=== PATIENT | female | born 1935 | race Caucasian/White ===

== ENCOUNTER 2017-04-07 21:12 | Observation (INO) | payer MEDICARE ==
[~2017-04-07] VITALS: Ht 157.5 cm; Wt 65.9 kg
[~2017-04-07 21:12] MED LIST: CHOL40003 PO; CIPR-232 PO; CYAN500 PO; LISI2.5T PO; TURM500C7 PO; ZINC50TA4 PO
--- NOTE | 2017-04-07 21:39 | ED.REPORT ---
HPI-Stroke / CVA Apr 07, 2017 ED Provider: Kunal Calles MD Pt is an 81 year old female with a history of meningioma (2004), pituitary tumor , and HTN who presents to the ED via EMS complaining of slurred speech onset 1 hour prior to arrival. Her reports that the pt had difficulty understanding what he was saying. Family denies any other symptoms. EMS reports that the pt was provided Lisinopril, and her symptoms are improved. The pt has had no recent surgeries or injury, and she does not take any blood thinners. The pt had an MRI on 10/14/16. Nursing Notes Stated Complaint: ABNORMAL SPEECH Chief Complaint: Slurred speech Nursing Notes Reviewed: Yes Allergies: Coded Allergies: MUSHROOM (Verified Allergy, Unknown, 04/07/17) Scheduled Cholecalciferol (Vitamin D3) (Vitamin D3) 4,000 Unit Capsule 4,000 UNIT PO DAILY (Reported) Lisinopril (Lisinopril) 2.5 Mg Tablet 2.5 MG PO DAILY (Reported) Turmeric Root Extract (Turmeric) 500 Mg Capsule 500 MG PO DAILY (Reported) Zinc Gluconate (Zinc) 50 Mg Tablet 50 MG PO DAILY (Reported) General Time Seen by Provider: 21:40 Chief Complaint Slurred speech Hx Obtained From: Patient, Spouse, Other family..., EMS Arrived By: Ambulance Time last known well 20:00 on 04/07/17 Sudden in Onset?: Yes Symptom Duration: Since onset Progression Since Onset: Gradually improving Severity: Current: No pain currently Severity: Maximum: No pain Recent Healthcare: No recent doctor visit, No recent hospitalization Similar Sx Previous: No Risk Factors NIH Stroke Scale Level of Consciousness: Alert and responsive (0) Ask Month & Age: Both questions right (0) Open/Close Eyes/Hand Rattle Leak And Squeak Repairer: Performs both tasks (0) Horizontal EO Movements: None (0) Visual Brennan: No visual loss (0) Facial Palsy: Normal symmetry (0) Right Arm Motor Drift (10s): No drift 10 sec (0) Left Arm Motor Drift (10s): No drift 10 sec (0) Right Leg Motor Drift (5s): No drift 5 sec (0) Left Leg Motor Drift (5s): No drift 5 sec (0) Limb Ataxia FNF/Heel-Mathew: No ataxia (0) Sensation (Arms/Legs/Face): No sensory loss (0) Language Aphasia: Loss fluency ID matls (1) (expressive aphasia) Dysarthria: No dysarthria, normal (0) Extinction/Inattention: No exctinct/inattent (0) NIHSS Score: 1 Time NIHSS Performed: 21:51 Date NIHSS Performed: Apr 07, 2017 Past Medical History Past Medical History Dysphagia Cranial tumor, question of Mnire's Disease Chronic back pain Reports: Hypertension Past Surgical History Laser eye Smoking History Never Smoker Social History Alcohol Use: Denies alcohol use Drug Use: Denies drug use Other Social History: Good social support Ambulatory Status Independent Review of Systems Constitutional: Denies: Fever Respiratory: Denies: Non-productive cough, Shortness of breath Neurologic: Reports: Slurred speech Complete sys rev & neg: except as marked. Physical Exam Initial Vital Signs Vital Signs (First) Date Time Temp Pulse Resp B/P Pulse Ox O2 Delivery O2 Flow Rate FiO2 04/07/17 21:56 36.8 80 18 190/79 97 Room Air Initial VS: Reviewed Abdomen / GI: Soft, Non-tender Extremities: Vascular intact, Neuro intact Skin: Warm, Dry, No cyanosis Psychiatric: Mood/affect normal, Behavior normal General/Constitutional: Awake, Alert Head / Eyes: Atraumatic, Normocephalic Neck: Atraumatic, Full range of motion Respiratory / Chest: Atraumatic, Breath sounds NL, Breath sounds = bilat Cardiovascular: Heart rate NL, Regular rhythm, Heart sounds NL Neurologic: CN II - XII intact See NIH stroke scale in risk section. Interpretation & Diagnostics Lab Results Interpretation Result Diagram: 04/07/17214504/07/17 214 Test 04/07/17 21:46 White Blood Count 9.5th/mm3 (3.8-10.1) Red Blood Count 4.44mil/mm3 (3.90-5.20) Hemoglobin 13.7g/dL (12.0-15.6) Hematocrit 41.6% (35.0-46.0) Mean Corpuscular Volume 93.7fL (81-100) Mean Corpuscular Hemoglobin 30.9pg (27.0-35.0) Mean Corpuscular Hemoglobin Concent 32.9% (32.0-37.0) Red Cell Distribution Width 13.3% (12.3-15.4) Platelet Count 278bil/L (150-400) Neutrophils (%) (Auto) 66.0% (40-74) Lymphocytes (%) (Auto) 25.3% (14-46) Monocytes (%) (Auto) 7.2% (4-12) Eosinophils (%) (Auto) 1.0% (0-5) Basophils (%) (Auto) 0.4% (0-3) Prothrombin Time 9.7sec (8.1-12.5) Prothromb Time International Ratio 0.91ratio Activated Partial Thromboplast Time 23.3sec (22.8-33.0) Sodium Level 139mEq/L (134-144) Potassium Level 4.3mEq/L (3.5-5.2) Chloride Level 99mEq/L (97-108) Carbon Dioxide Level 25mmol/L (18-29) Blood Urea Nitrogen 17mg/dL (8-27) Creatinine 0.94mg/dL (0.57-1.00) Estimat Glomerular Filtration Rate 82mL/min (>59) Glucose Level 117mg/dL (60-99) Calcium Level 9.6mg/dL (8.5-10.1) Total Bilirubin 0.2mg/dL (0.0-1.2) Aspartate Amino Transf (AST/SGOT) 27U/L (0-50) Alanine Aminotransferase (ALT/SGPT) 9U/L (0-32) Alkaline Phosphatase 70U/L (25-165) Troponin T 0.010ug/L (0.0-0.011) Total Protein 7.5g/dL (6.4-8.4) Albumin 4.4g/dL (3.4-5.0) ECG Interpretation ECG Interpretation: Sinus rhythm with a rate of [address] changes Time: 22:04 Interpreted by: ED physician CT Head Interpretation IMPRESSION: No acute intracranial abnormality. 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 This study fulfills neurological imaging criteria for inclusion or exclusion of acute stroke therapies based on available published neurological guidelines. Dictated by: Arthur Morales M.D. on 04/07/2017 at 21:59 Study: Head CT no contrast Interpretation / Wet Read by: Interpret - Radiologist Re-Eval/Medical Decision Med Decision/Clinical Course 81-year-old female history of meningioma, pituitary mass, hypertension presenting with dysarthria and expressive aphasia last known normal 8:00 PM. On arrival her symptoms had resolved. CT scan and labs were unremarkable. Her symptoms then returned with expressive aphasia. I consulted the on-call stroke neurologist at [facility] who recommended no TPA given labile blood pressures, age, low NIHSS (2) and fluctuating degree of symptoms. Discussed with family and they agreed with plan. She will be admitted for stroke workup. Given aspirin. Source of Hx: Old records Re-Evaluation/Progress #1: Time of Eval: 21:51 Re-Evaluation/Progress Note: Pt rechecked. NIH stroke scale assessed. Informed family of TPA and plan to discuss candidacy with neurologist. Informed of plan for admission. Pt's family understands and agrees with plan for admission. All questions addressed. Re-Evaluation/Progress #2: Time of Eval: 22:48 Re-Evaluation/Progress Note: Pt rechecked. Assessed pt with additional NIH stroke scale. Informed family of consult with neurologist and advice against treating with TPA. Family understand and agrees with plan to avoid treating with TPA. All questions addressed. Re-Evaluation/Progress #3: Time of Eval: 22:57 Re-Evaluation/Progress Note: Pt rechecked. Updated pt and family. All questions addressed. NIH Stroke Scale : Level of Consciousness: Alert and responsive (0) Ask Month & Age: Both questions right (0) Open/Close Eyes/Hand Rattle Leak And Squeak Repairer: Performs both tasks (0) Horizontal EO Movements: None (0) Visual Brennan: No visual loss (0) Facial Palsy: Normal symmetry (0) Right Arm Motor Drift (10s): No drift 10 sec (0) Left Arm Motor Drift (10s): No drift 10 sec (0) Right Leg Motor Drift (5s): No drift 5 sec (0) Left Leg Motor Drift (5s): No drift 5 sec (0) Limb Ataxia FNF/Heel-Mathew: No ataxia (0) Sensation (Arms/Legs/Face): No sensory loss (0) Language Aphasia: Severe, fragmented (2) (expressive aphasia) Dysarthria: No dysarthria, normal (0) Extinction/Inattention: No exctinct/inattent (0) NIHSS Score: 2 Time NIHSS Performed: 22:48 Date NIHSS Performed: Apr 07, 2017 Consultation #1: Call Returned at: 22:00 Explosives Engineer: Agrees with eval, Agrees with plan Note: Consulted [facility]. Discussed pt's case. Consultation #2: Referral / Consult Name: Andres Dennis MD Consulted With: Hospitalist Call Returned at: 22:49 Explosives Engineer: Will see patient, Agrees with eval, Agrees with plan, Accepts admit Consultation #3: Referral / Consult Name: Darren Grey MD Consulted With: Neurology Call Returned at: 22:35 Explosives Engineer: Agrees with eval, Agrees with plan Note: Discussed pt's case and candidacy for TPA. Recommends not using TPA due to low NIH score and HTN, but to consider TPA if she develops worsening symptoms. Consultation #4: Call Returned at: 23:13 Explosives Engineer: Agrees with eval, Agrees with plan Note: Consulted with Dr. Pollo Green. Discussed pt's case. Counseled Regarding: Diagnosis, Lab results, Need for admission Patient Discharge & Departure Impression: Primary Impression: CVA (cerebral vascular accident) CVA mechanism: unspecified Qualified Code: I63.9 - Cerebral infarction, unspecified Disposition: ADMITTED TO HOSPITAL Discharge Condition All VS Reviewed: Yes Condition: Stable Referrals: Johanna Guardado (PCP) Crit Care Except Billable Proc Time Spent: 30-74 minutes (40) Services Performed: Patient management by me, Time spent at bedside, Reviewing test results, Reviewing imaging, Discussing patient care, Documentation in record, Time with fam/surrogate Scribe Attestation Portions of this note were transcribed by Kimberly Araiza. I, Dr. Calles personally performed the history, physical exam and medical decision-making; I reviewed and confirmed the accuracy of the information in the transcribed note. Signed by: Pillo Salguero, 04/07/17. copies to: Johanna Guardado Ben M MD Apr 07, 2017 21:39 Kimberly Rainey Apr 07, 2017 21:50
[2017-04-07 21:55] LABS: BASOPHILS % (AUTO) 0.4 % (0-3); MONOCYTES % (AUTO) 7.2 % (4-12); Mean Corpuscular Hemoglobin 30.9 pg (27.0-35.0); Mean Corpuscular Volume 93.7 fL (81-100); Platelet Count 278 bil/L (150-400)
[2017-04-07 21:56] VITALS: BP 190/79; PULSE 80; RESP 18; O2SAT 97
[2017-04-07 22:06] LABS: TROPONIN T 0.01 ug/L (0.0-0.011)
--- NOTE | 2017-04-07 22:06 | DRSVH ---
PROCEDURE: CT BRAIN TPA INDICATIONS: speech changes, facial droop TECHNIQUE: Noncontrast 4.5 mm thick angled axial sections acquired from the foramen magnum to the vertex, with c oronal reformats. COMPARISON: [facility], CT, CT BRAIN WO CON, 07/03/2016, 11:49. FINDINGS: Image quality: Good CSF spaces: Basal cisterns are patent. No extra-axial fluid collections. The ventricles are symmet rebecca in size and shape. There is a small frontoparietal left-sided meningioma unchanged as older imag ing measuring approximately 1/2 cm in diameter and 7 mm in thickness. There is also an enlarged pitui tary fossa grossly unchanged compared to previous MRI scans consistent with a small macroadenoma of t he pituitary Brain: No intracranial bleeds or masses. There is cerebral volume loss for age, with resultant vent ricular and sulcal prominence. There are periventricular and deep white matter chronic small vessel ischemic changes. There is intracranial internal carotid artery atherosclerosis. Skull and face: Calvarium and visualized facial bones appear intact, without suspicious lesions. Sinuses: Visualized sinuses and mastoids are clear. IMPRESSION: No acute intracranial abnormality. 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 This study fulfills neurological imaging criteria for inclusion or exclusion of acute stroke therapie s based on available published neurological guidelines. Dictated by: Arthur Morales M.D. on 04/07/2017 at 21:59 Approved by: Arthur Morales M.D. on 04/07/2017 at 22:04 report called to the clinician involved.
[2017-04-07 22:10] LABS: INR 0.91 ratio
[2017-04-07] MEDS ORDERED: Labetalol 5 mg/mL 20 mL Inj IVPUSH ONE (22:30)
[2017-04-07 22:33] VITALS: BP 174/75; PULSE 76; RESP 18; O2SAT 97
[2017-04-07] MEDS ORDERED: Ondansetron 2 mg/mL 2 mL Inj IVPUSH PRN ×2 (22:55→23:10)
[2017-04-07] MEDS ORDERED: Alum-Mag Hydrox-Simeth 30 mL Suspension PO PRN ×2 (22:55→23:10)
[2017-04-07] MEDS ORDERED: Polyethylene Glycol (PEG) 17 Gm Powder PO PRN (23:10)
[2017-04-07 23:30] VITALS: BP 160/80; PULSE 75; RESP 18; O2SAT 99
[2017-04-07 23:46] VITALS: BP 190/90; PULSE 77; RESP 18; O2SAT 97
--- NOTE | 2017-04-07 23:46 | PCM.HPMED ---
Subjective Date of Service Apr 07, 2017 Primary Provider: Admitting Physician: Andres Dennis MD Primary Care Physician: Johanna Guardado Attending Physician: Andres Dennis MD Admit Status: From the Emergency Department Chief Complaint: Slurred speech, aphasia History of Present Illness: Mariam Velarde is a pleasant 81-year-old female with a past medical history of meningioma and pituitary tumor, and hypertension, presents to the ED via EMS one hour slurred speech and trouble speaking. Her noted that he could not understand what she was saying that she was slightly confused, but denies any facial drooping, unilateral motor or muscle weakness. She was able to follow commands and get into the EMS without issue. She is on no blood thinning medications. Her symptoms resolved by the time she got to the ED, where her blood pressures have been quite labile. [place] Neurology was consulted and Dr. Grey recommended no TPA therapy due to the mildness of her symptoms and ongoing BP lability. Her aphasia is present during our exam. Most of the history was obtained and her . Review of Systems: Comprehensive review of systems was conducted with the patient and found to be negative except as noted above in HPI. Allergies Coded Allergies: MUSHROOM (Verified Allergy, Unknown, 04/07/17) Home Medications Scheduled Cholecalciferol (Vitamin D3) (Vitamin D3) 4,000 Unit Capsule 4,000 UNIT PO DAILY (Reported) Cyanocobalamin (Vitamin B12) 500 Mcg Tablet 1,000 MCG PO DAILY (Reported) Lisinopril (Lisinopril) 2.5 Mg Tablet 2.5 MG PO DAILY (Reported) Turmeric Root Extract (Turmeric) 500 Mg Capsule 500 MG PO DAILY (Reported) Zinc Gluconate (Zinc) 50 Mg Tablet 50 MG PO DAILY (Reported) PMH Dysphagia Meningioma/pituitary macroadenoma Chronic back pain Hypertension Surgical History Bilateral laser eye surgery Family History Mother had a stroke. Social History Hx Alcohol Use: No Hx Substance Use: No Hx Tobacco Use: No Smoking Status: Never Smoker Living Arrangement: with Family Exam Vital Signs Vital Sign - Last Date Time Temp Pulse Resp B/P Pulse Ox O2 Delivery O2 Flow Rate FiO2 04/07/17 23:30 75 18 160/80 99 Room Air 04/07/17 21:56 36.8 Exam General: Elderly woman lying comfortably in bed, well-developed, well-nourished HEENT: Normocephalic, atraumatic. External ears without defect. Pupils equal, round, and reactive to light and accommodation. Anicteric sclerae, moist conjunctivae, and no lid lag. Oropharynx free of erythema and cobble stoning with moist mucosa. Neck: Supple with full range of motion. No jugular venous distension. No bruits. No lymphadenopathy or thyromegaly. Cardiovascular: Regular rate and rhythm with no murmurs, rubs, or gallops appreciated Pulmonary: Clear to auscultation bilaterally with no crackles, wheezes, or rhonchi. Normal respiratory effort with no use of accessory muscles. Abdomen: Bowel tones present. Soft, nontender, nondistended. No hepatosplenomegaly or masses appreciated. Extremities: No clubbing, cyanosis, edema, or lymphadenopathy appreciated. Skin: Normal temperature, turgor, and texture; no rash, ulcers, or subcutaneous nodules appreciated. Neurological: Cranial nerves grossly intact. Normal muscle strength, tone, and bulk. Reflexes, coordination, and sensory function within normal limits. She had some difficulty expressing herself during our interview, but follows commands and answers yes and no questions easily. Psychiatric: Slightly anxious when she can't express herself. Lab and Diagnostics Result Diagram: 04/07/17214504/07/172145 X-Rays, CTs and MRIs Brain CT 04/07/2017 IMPRESSION: No acute intracranial abnormality. 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 This study fulfills neurological imaging criteria for inclusion or exclusion of acute stroke therapies based on available published neurological guidelines. Dictated by: Arthur Morales M.D. on 04/07/2017 at 21:59 Approved by: Arthur Morales M.D. on 04/07/2017 at 22:04 report called to the clinician involved. 12-lead ECG ECG Interpretation: Sinus rhythm with a rate of [address] changes Time: 22:04 Interpreted by: ED physician Assessment & Plan Mariam Velarde is a pleasant 81-year-old female with a past medical history of meningioma and pituitary tumor, and hypertension, presents to the ED via EMS one hour slurred speech and trouble speaking which mostly resolved prior to ED arrival. Stroke/TIA, present on admission. Acute. Ongoing. - Slurred speech, aphasia resolved prior to ED; aphasia still somewhat present - [place] neurology consulted from ED; recommend no TPA - CT negative for acute bleed - MRI stroke protocol for tomorrow morning - PT, ST ordered for the morning - Swallow screen pending; NPO until done - Start 81mg aspirin, 300mg plavix and 40 mg of atorvastatin when swallow screen is done - Lipid Panel ordered Hypertension, present on admission. Chronic. - We will allow permissive hypertension for 24 hours - Hold lisinopril 2.5 milligrams daily; restart when appropriate PRN Medications - Acetaminophen as needed for mild pain/fever/headache - Bowel regimen as needed - Antiemetic as needed Patient status: Patient is admitted under observation status with expected length of stay less than 2 midnights due to severity of presenting symptoms, risk of adverse event, and complexity of treatment plan. VTE Prophylaxis: Sub-Q Heparin (Unfractionated) VTE Mechanical Devices: Intermittant Pneumatic CD Resuscitation Status: CPR: Attempt Resuscitation Attending Statement The patient was seen and examined together with Dr. Read on 04/07 and I agree with the history, exam and plan as outlined in the note above. Lenny Read DO Apr 07, 2017 23:46 Andres Dennis MD Apr 08, 2017 06:35
[2017-04-08] MEDS: Heparin 5,000 Unit/mL Inj SUBQ SCH ×3 (00:31→16:30)
[2017-04-08 02:10] LABS: APPEARANCE,URINE CLEAR (CLEAR,HAZY); COLOR,URINE YELLOW (YELLOW); OCCULT BLOOD,URINE NEGATIVE (NEGATIVE); UROBILINOGEN,URINE NORMAL (NORMAL)
--- NOTE | 2017-04-08 02:48 | NUR ---
Admit Pt. arrived on floor at 2345. Pt's peripheral IV intact and patent. Pt. did experience some aphasia during first neuro check on admission with this RN. Pt. had a hard time saying the word "hospital". Pt. has been experiencing aphasia on and off since coming to the ER, per [employer] nurse report. Otherwise, neuro check wnl. and son in room. Oriented to room. Will continue to monitor.
[2017-04-08 04:48] VITALS: BP 172/90; PULSE 68; RESP 18; O2SAT 96
[2017-04-08 06:17] VITALS: PULSE 72
[2017-04-08 08:52] VITALS: BP 156/84; PULSE 76; RESP 18; O2SAT 95
[2017-04-08 09:05] VITALS: PULSE 85
--- NOTE | 2017-04-08 09:23 | NUR ---
Evaluation completed. Please go to "Notes" then click on "Assessments and Notes" (bottom left corner of screen). Then select appropriate discipline tab on top of screen.
--- NOTE | 2017-04-08 10:09 | DRSVH ---
PROCEDURE: MRI STROKE PROTOCOL ([id number]) Pre- and post-contrast brain MRI, non-contrast brain MR angiogram, pre- and postcontrast neck MR ivan ogram INDICATIONS: stroke/TIA TECHNIQUE: Brain: Noncontrast axial T1 spin echo, axial T2 fast spin echo, sagittal and axial FLAIR, coronal T2 fast spin echo, axial gradient echo, axial diffusion and ADC through the brain. After the administr ation of contrast, axial 3D VIBE of the cranial vasculature and brain. Brain MRA: Non-contrast 3-D time of flight MR angiogram, with multiple ytnkcqm-gwklfdvgw-evqwyrsjob (MIP) reformats performed. Neck MRA: Axial and sagittal TruFISP through the neck. Coronal dynamic MR angiogram during administ ration of contrast in the arterial and venous phases, with 3-dimenstional mgldonl-ulqtiknqj-yiienxucu n (MIP) reformats constructed from subtraction images. COMPARISON: [facility], MR, MR BRAIN W&WO CON, 10/14/2016, 8:40. FINDINGS: Image quality: Excellent. BRAIN: CSF spaces: Ventricles are normal in size and shape. Basal cisterns are patent. No extra-axial flu id collections. Brain: No intracranial bleeds. There is an 1.6 cm unchanged presumed meningioma at the left vertex, grossly stable since 10/14/16. There is associated signal change on diffusion weighted imaging as befor e, not acute ischemia. Scattered bilateral white matter signal changes, statistically representing chronic microvascular isc hemic disease although technically nonspecific. Ibanez-white matter interface is normal. Diffusion weighted images show no acute ischemic insults. Br ainstem appears normal. Normal intravascular flow voids are present. No abnormal intracranial enhan cement. Skull and face: Calvarial marrow signal is normal. Orbits appear normal. Sinuses: Sinuses clear. There is bilateral mastoid air cell fluid as before. BRAIN MR ANGIOGRAM: Anterior circulation: Intracranial internal carotid arteries are normal in size and enhancement. Th e flow within the paired anterior cerebral arteries is normal and symmetric. There is decreased flow/ visualization of the distal M1 proximal M2 segments of the middle cerebral arteries bilaterally, othe rwise flow within the middle cerebral arteries is normal and symmetric. The anterior communicating a rtery is seen. No stenoses, occlusions, or aneurysms. Posterior circulation: The visualized portions of the vertebral arteries are tortuous however demons trate normal caliber, and join to form a normal appearing basilar artery. The flow within the geomorphology teacher ior cerebral arteries is normal and symmetric. No stenoses, occlusions, or aneurysms. NECK MR ANGIOGRAM: Carotids: Great vessels demonstrate a conventional anatomy as they arise from the aortic arch. The origins of the common carotid arteries appear patent. The calibers and courses of both common caroti d arteries are normal. The bifurcation regions appear normal bilaterally. The internal carotid allie siddharth demonstrate normal course and caliber. Posterior circulation: The origins of the vertebral arteries appear patent. More superior portions of both vertebral arteries demonstrate normal course and caliber, and join to form a normal appearing basilar artery. Miscellaneous: Subclavian arteries appear patent. Pre-contrast images through the neck show no soft tissue abnormalities. IMPRESSION: BRAIN MRI: No evidence of acute ischemia. 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 Bilateral mastoid air cell fluid, as before. BRAIN MR ANGIOGRAM: Decreased visualization of the distal M1 and proximal M2 segments of the middle cerebral arteries (bi laterally) although appear patent NECK MR ANGIOGRAM: No internal carotid artery stenosis. The estimate of stenosis included in the report of the imaging study was calculated using the NASCET method Dictated by: Jessee Borden M.D. on 04/08/2017 at 9:57 Approved by: Jessee Borden M.D. on 04/08/2017 at 10:08
--- NOTE | 2017-04-08 11:29 | NUR ---
Evaluation completed. Please go to "Notes" then click on "Assessments and Notes" (bottom left corner of screen). Then select appropriate discipline tab on top of screen.
--- NOTE | 2017-04-08 11:51 | NUR ---
Case Management: FARRELL given and explained to pt and . Brisa HOLLOWAYRN
[2017-04-08 13:01] VITALS: BP 153/84; PULSE 71; RESP 20; O2SAT 96
--- NOTE | 2017-04-08 15:43 | PCM.PNMED ---
Subjective Date of Service Apr 08, 2017 Subjective Says symptoms much improved since admission. Denies any other new issues/ complaints Exam Vital Signs Vital Sign - Last Date Time Temp Pulse Resp B/P Pulse Ox O2 Delivery O2 Flow Rate FiO2 04/08/17 13:01 36.8 71 20 153/84 96 Room Air Intake and Output 04/07/17 04/07/17 04/08/17 Cumulative From/Thru 15:00 23:00 07:00 04/07/17 23:46 - 04/08/17 06:16 Intake Total 0 ml 0 ml Output Total 225 ml 225 ml Balance -225 ml -225 ml Intake Oral 0 ml 0 ml Output Urine Total 225 ml 225 ml # Voids 1 1 Exam General: Alert, Cooperative, No Acute Distress Head: Normal Eyes: Scleral Anicteric Nose: Mucous Membr Moist/[place] Mouth: Mucous Membr Moist/[place] Neck: Supple Chest & Lungs: Chest Wall Normal, Clear to auscultation bilat Cardiovascular: Regular Rate/Rhythm Abdomen: Non-tender, Non-distended, Normoactive bowel tones, Soft Extremities: No cyanosis/clubbing/edema bilat Neurological: Grossly Neurologically Intact, Normal Speech IVs and Medications Medications Reviewed: Medications were reviewed in detail Lab and Diagnostics Result Diagram: 04/07/[id number] X-Rays, CTs and MRIs Brain CT 04/07/2017 IMPRESSION: No acute intracranial abnormality. 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 This study fulfills neurological imaging criteria for inclusion or exclusion of acute stroke therapies based on available published neurological guidelines. Dictated by: Arthur Morales M.D. on 04/07/2017 at 21:59 Approved by: Arthur Morales M.D. on 04/07/2017 at 22:04 report called to the clinician involved. 12-lead ECG ECG Interpretation: Sinus rhythm with a rate of [address] changes Time: 22:04 Interpreted by: ED physician Assessment & Plan 81-year-old female with a past medical history of meningioma and pituitary tumor , and hypertension, presents to the ED via EMS one hour slurred speech and trouble speaking which mostly resolved prior to ED arrival. # Acute TIA, present on admission. - Slurred speech, aphasia resolved - [place] neurology consulted from ED; recommend no TPA - CT negative for acute bleed - MRI stroke protocol without acute finding - Followup pending Echo - Continue with ASA + Lipitor - Not sure why patient started on Plavix. Will stop. # Hypertension, present on admission. Chronic. - Resume home BP meds # Hyperlipidemia - Lipitor as noted above Dispo: Likely tomorrow pending Echo VTE Prophylaxis: Sub-Q Heparin (Unfractionated) VTE Mechanical Devices: Intermittant Pneumatic CD Resuscitation Status: CPR: Attempt Resuscitation Raymundo Sethi Apr 08, 2017 15:43 VTE Mechanical Devices: Intermittant Pneumatic CD Resuscitation Status: CPR: Attempt Resuscitation Raymundo Sethi Apr 08, 2017 15:43 Raymundo Sethi Apr 08, 2017 15:43
[2017-04-08 17:09] VITALS: BP 171/93; PULSE 74; RESP 18; O2SAT 97
--- NOTE | 2017-04-08 17:45 | DRSVH ---
[facility] [address] [place] [place] [address] Echocardiogram Report Name: DONNELL COATS JStudy Date : 04/08/2017 Height: 62 in Hospital Exam Location: [facility] Weight: 145 lb Gender: Female BSA: 1.7 m2 : 1935 Age: 81 yrs BP: 153/84 mm Hg Reason For Study: TIA Ordering Physician: Performed By: Daniela Valadez Referring Physician: Johanna Guardado Interpretation Summary 1. Normal left ventricular size, wall thickness and systolic function with an estimated EF of 60-65% 2. Normal right ventricular size and systolic function. The estimated RVSP is 49 mm Hg 3. Aortic valve sclerosis/calcification without stenosis or insufficiency. 4. Mild mitral annular calcification with mild valvular insuffciency. There is no old study for comparison Procedure: A two-dimensional transthoracic echocardiogram with color flow and Doppler was performed. The study quality was technically adequate. There is no prior echocardiogram noted for this patient. The patient was in normal sinus rhythm during the exam. Left Ventricle: The left ventricle is normal in size. There is normal left ventricular wall thickness. The ejection fraction is estimated to be 60-65%. No obvious wall motion abnormalities. Assessment of diastolic parameters indicates normal left ventricular diastolic function and normal filling pressures. Right Ventricle: The right ventricle is normal in size and function. Atria: Both atria are normal in size. No color doppler evidence for an ASD. Mitral Valve: There is mild mitral annular calcification. The mitral valve leaflets appear mildly thickened, but open well. There is mild mitral regurgitation. Aortic Valve: The aortic valve is trileaflet. The aortic valve is mildly calcified. The aortic valve opens well. No aortic regurgitation is present. Tricuspid Valve: The tricuspid valve leaflets are thin and pliable. There is mild tricuspid regurgitation. The right ventricular systolic pressure is estimated at 49 mmHg assuming a right atrial pressure of 3 mm Hg. Pulmonic Valve: The pulmonic valve is normal in structure and function. There is mild pulmonic regurgitation. Great Vessels: The aortic root is normal size. The ascending aorta is normal in size. The aortic arch could not be visualized. The IVC is of normal diameter and collapses greater than 50% with a sniff. This suggests a low right atrial pressure of 3 mm Hg. Pericardium/ Pleura There is no pericardial effusion. There is no pleural effusion. MMode/2D Measurements & Calculations LVIDd: 4.5 cm RA long axis LVOT diam LVIDs: 3.2 cm LA A2 area: 16.6 cm FS: 29.0 % LA A4 area: 19.8 cm RA area AoV Opening EPSS: 0.73 cm LA length (vol): 6.1 cm IVSd: 1.0 cm LA vol: 45.7 ml : 16.4 cm Ao root diam LVPWd: 0.88 cm LA vol index RA vol : 43.7 ml Aortic Jxn RA IVC diam: 1.0 cm : 26.2 mm2 asc Aorta Diam: 3.1 cm LV jaimes. diameter/BSA LV sys. diameter/BSA RVD1 (basal) TAPSE: 2.4 cm (cm/m^2): 2.7 (cm/m^2): 1.9 Doppler Measurements & Calculations Ao V2 max MV E max rolo MV E/A: 1.0 TR max rolo : 132.9 cm/sec : 88.7 cm/sec Med Peak E' Rolo : 337.6 cm/sec Ao max PG MV A max rolo TR max PG : 7.1 mmHg : 86.4 cm/sec E/E' med: 15.1 : 45.6 mmHg Ao mean PG MV P1/2t: 60.5 msec Lat Peak E' Rolo PA V2 max : 56.6 cm/sec LVOT Max Rolo E/E' lat: 12.4 PA mean PG : 86.7 cm/sec E/e' average : 0.72 mmHg PA Accel Time XIOMY(I,D): 1.4 cm : 0.07 sec sev ratio MV dec time MV P1/2t max rolo Ao V2 mean LV V1 max PG : 0.20 sec : 90.3 cm/sec MVA(P1/2t): 3.6 cm2 Ao V2 VTI: 26.3 cmLV V1 VTI XIOMY(V,D): 1.4 cm2 : 16.8 cm PA V2 mean XIOMY indexed to BSA : 40.6 cm/sec (cm^2/m^2): 0.84 Reading Physician:05:44 PM
[2017-04-08] MEDS ORDERED: ASPI-973 PO (18:09)
[2017-04-08] MEDS ORDERED: ATOR40TA69 PO (18:09)
--- NOTE | 2017-04-08 18:15 | PCM.DIMED ---
Discharge Instructions Date of Service Apr 08, 2017 Dates of Hospitalization Apr 07, 2017 at 23:20 Discharge Diagnosis Discharge Diagnosis # Acute transient ischemic attack (TIA), present on admission. Resolved. - Slurred speech, aphasia resolved # Chronic hypertension, present on admission. # Hyperlipidemia Diet Discharge Diet: Low fat, Low Sodium, Heart Healthy Activity Discharge Activity: No restrictions Call your provider Call your provider for: Fever or Chills, Shortness of breath, Bleeding, Chest pain, Weakness (unilateral) Patient Instructions Patient Instructions Seek immediate medical attention if any new signs or symptoms occur. Follow-up plan 1. Followup with primary care provider in 2-5 days Follow-up Provider: Johanna Guardado Masoud Apr 08, 2017 18:14
--- NOTE | 2017-04-08 18:21 | PCM.DC.MED ---
Discharge Summary Date of Service Apr 08, 2017 Dates of Hospitalization Date of Hospital Admission Apr 07, 2017 at 23:20 Date of Discharge: Apr 08, 2017 Providers: Admitting Physician: Andres Dennis MD Primary Care Physician: Johanna Guardado Attending Physician: Raymundo Mcclure Diagnosis at Time of Discharge Diagnosis at Time of Discharge # Acute transient ischemic attack (TIA), present on admission. Resolved. - Slurred speech, aphasia resolved # Chronic hypertension, present on admission. # Hyperlipidemia Procedures XRay, CTs & MRIs Brain CT 04/07/2017 IMPRESSION: No acute intracranial abnormality. 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 This study fulfills neurological imaging criteria for inclusion or exclusion of acute stroke therapies based on available published neurological guidelines. Dictated by: Arthur Morales M.D. on 04/07/2017 at 21:59 Approved by: Arthur Morales M.D. on 04/07/2017 at 22:04 report called to the clinician involved. Date of Service: 04/08/17 0500 PROCEDURE: MRI STROKE PROTOCOL ([id number]) Pre- and post-contrast brain MRI, non-contrast brain MR angiogram, pre- and postcontrast neck MR angiogram IMPRESSION: BRAIN MRI: No evidence of acute ischemia. 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 Bilateral mastoid air cell fluid, as before. BRAIN MR ANGIOGRAM: Decreased visualization of the distal M1 and proximal M2 segments of the middle cerebral arteries (bilaterally) although appear patent NECK MR ANGIOGRAM: No internal carotid artery stenosis. The estimate of stenosis included in the report of the imaging study was calculated using the NASCET method Dictated by: Jessee Borden M.D. on 04/08/2017 at 9:57 Approved by: Jessee Borden M.D. on 04/08/2017 at 10:08 ECG 12 Lead ECG Interpretation: Sinus rhythm with a rate of [address] changes Time: 22:04 Interpreted by: ED physician Cardiac Echo Impression Date of Service: 04/08/17 0743 Echocardiogram Report Interpretation Summary 1. Normal left ventricular size, wall thickness and systolic function with an estimated EF of 60-65% 2. Normal right ventricular size and systolic function. The estimated RVSP is 49 mm Hg 3. Aortic valve sclerosis/calcification without stenosis or insufficiency. 4. Mild mitral annular calcification with mild valvular insuffciency. There is no old study for comparison Reading Physician:05:44 PM Brief History As noted in H&P by Dr. Read: Mariam Velarde is a pleasant 81-year-old female with a past medical history of meningioma and pituitary tumor, and hypertension, presents to the ED via EMS one hour slurred speech and trouble speaking. Her noted that he could not understand what she was saying that she was slightly confused, but denies any facial drooping, unilateral motor or muscle weakness. She was able to follow commands and get into the EMS without issue. She is on no blood thinning medications. Her symptoms resolved by the time she got to the ED, where her blood pressures have been quite labile. [place] [facility] was consulted and Dr. Grey recommended no TPA therapy due to the mildness of her symptoms and ongoing BP lability. Her aphasia is present during our exam. Most of the history was obtained and her . Hospital Course # Acute TIA, present on admission. - Slurred speech, aphasia resolved - [place] neurology consulted from ED; recommend no TPA - CT negative for acute bleed - MRI stroke protocol without acute finding - Echo unremarkable as noted above - Continue with ASA + Lipitor on discharge # Hypertension, present on admission. Chronic. - Resume home BP meds on discharge # Hyperlipidemia - Lipitor as noted above by day of discharge reports complete resolution of her presenting symptoms. Exam Vital Signs (Last) Date Time Temp Pulse Resp B/P Pulse Ox O2 Delivery O2 Flow Rate FiO2 04/08/17 17:09 36.9 74 18 171/93 97 Room Air Exam General: Alert, Cooperative, No Acute Distress Head: Normal Eyes: Scleral Anicteric Nose: Mucous Membr Moist/[place] Mouth: Mucous Membr Moist/[place] Neck: Supple Chest & Lungs: Chest Wall Normal, Clear to auscultation bilat Cardiovascular: Regular Rate/Rhythm Abdomen: Non-tender, Non-distended, Normoactive bowel tones, Soft Extremities: No cyanosis/clubbing/edema bilat Neurological: Grossly Neurologically Intact, Normal Speech Test 04/07/17 21:46 04/08/17 01:59 04/08/17 05:31 White Blood Count 9.5th/mm3 (3.8-10.1) Red Blood Count 4.44mil/mm3 (3.90-5.20) Hemoglobin 13.7g/dL (12.0-15.6) Hematocrit 41.6% (35.0-46.0) Mean Corpuscular Volume 93.7fL (81-100) Mean Corpuscular Hemoglobin 30.9pg (27.0-35.0) Mean Corpuscular Hemoglobin Concent 32.9% (32.0-37.0) Red Cell Distribution Width 13.3% (12.3-15.4) Platelet Count 278bil/L (150-400) Neutrophils (%) (Auto) 66.0% (40-74) Lymphocytes (%) (Auto) 25.3% (14-46) Monocytes (%) (Auto) 7.2% (4-12) Eosinophils (%) (Auto) 1.0% (0-5) Basophils (%) (Auto) 0.4% (0-3) Prothrombin Time 9.7sec (8.1-12.5) Prothromb Time International Ratio 0.91ratio Activated Partial Thromboplast Time 23.3sec (22.8-33.0) Sodium Level 139mEq/L (134-144) Potassium Level 4.3mEq/L (3.5-5.2) Chloride Level 99mEq/L (97-108) Carbon Dioxide Level 25mmol/L (18-29) Blood Urea Nitrogen 17mg/dL (8-27) Creatinine 0.94mg/dL (0.57-1.00) Estimat Glomerular Filtration Rate 82mL/min (>59) Glucose Level 117mg/dL (60-99) Calcium Level 9.6mg/dL (8.5-10.1) Total Bilirubin 0.2mg/dL (0.0-1.2) Aspartate Amino Transf (AST/SGOT) 27U/L (0-50) Alanine Aminotransferase (ALT/SGPT) 9U/L (0-32) Alkaline Phosphatase 70U/L (25-165) Troponin T 0.010ug/L (0.0-0.011) Total Protein 7.5g/dL (6.4-8.4) Albumin 4.4g/dL (3.4-5.0) Urine Color Yellow (YELLOW) Urine Appearance Clear (CLEAR,HAZY) Urine pH 6.0 (5.0-8.0) Urine Specific [place] 1.005 (1.003-1.035) Urine Protein Negativemg/dL (NEG,TRACE) Urine Glucose (UA) Negativemg/dL (NEGATIVE) Urine Ketones Negativemg/dL (NEGATIVE) Urine Occult Blood Negative (NEGATIVE) Urine Nitrite Negative (NEGATIVE) Urine Bilirubin Negative (NEGATIVE) Urine Urobilinogen Normalmg/dL (NORMAL) Urine Leukocyte Esterase Negative (NEGATIVE) Urine RBC 0-2/hpf (0-2) Urine WBC 0-5/hpf (0-5) Urine Epithelial Cells Few/hpf (NONE-MOD) Urine Crystals None seen (NONE SEEN) Urine Bacteria None/hpf (NONE-FEW) Urine Hyaline Casts None/lpf (NONE) Urine Granular Casts None seen (NONE SEEN) Urine Waxy Casts None seen (NONE SEEN) Urine Red Blood Cell Casts None seen (NONE SEEN) Urine White Blood Cell Casts None seen (NONE SEEN) Urine Mucus None seen (None Seen) Urine Trichomonas None seen (NONE SEEN) Urine Yeast None (NONE SEEN) Urinalysis Comment None Urine Culture Reflexed Not indicated Triglycerides Level 167mg/dL (0-149) Cholesterol Level 205mg/dL (100-199) LDL Cholesterol, Calculated 125.600mg/dL (0-99) VLDL Cholesterol 33.400mg/dL HDL Cholesterol 46mg/dL (>39) Cholesterol/HDL Ratio 4.46 (0.0-4.4) Discharge Medications Discharge Medications Aspirin (Aspirin) 81 Mg Tablet 81 MG PO DAILY Prescribed by: RAYMUNDO MCCLURE MD Atorvastatin Calcium (Atorvastatin Calcium) 40 Mg Tablet 40 MG PO HS Prescribed by: RAYMUNDO MCCLURE MD Cholecalciferol (Vitamin D3) (Vitamin D3) 4,000 Unit Capsule 4,000 UNIT PO DAILY (Reported) Lisinopril (Lisinopril) 2.5 Mg Tablet 2.5 MG PO DAILY (Reported) Turmeric Root Extract (Turmeric) 500 Mg Capsule 500 MG PO DAILY (Reported) Zinc Gluconate (Zinc) 50 Mg Tablet 50 MG PO DAILY (Reported) Followup Plan Disposition: Home Follow-up plan 1. Followup with primary care provider in 2-5 days Discharge Diet: Low fat, Low Sodium, Heart Healthy Discharge Activity: No restrictions Patient Instructions Seek immediate medical attention if any new signs or symptoms occur. Follow-up Provider: Johanna Guardado Time spent 30 min copies to: Johanna Guardado Masoud Apr 08, 2017 18:21
--- NOTE | 2017-04-08 19:30 | NUR ---
Discharge Patient departed unit via wheelchair, accompanied by staff and spouse. Patient alert and oriented at time of discharge. Patient reporting that "I can talk again, but sometimes i have a little trouble finding the right words". Patient denies current chest discomfort, shortness of breath, nausea, dizziness. Patient gait steady, speech hesitant, with minor word searching, tongue midline, sheet rock layer equal, denies new weakness. Discharge instructions/medications reviewed with patient prior to discharge. All questions addressed. Patient belongings, discharge instructions and prescriptions in hand.
== END 2017-04-08 19:40 | disposition home or self-care (01) ==
LOC: EDBD 21:12 → SED 21:12 → MPC 23:20 → INTOOBSV 23:20
PROVIDERS: ADMIT Hospitalist; ATTEND Hospitalist
DX: G45.9 Transient cerebral ischemic attack, unspecified (principal); R47.81 Slurred speech; R47.01 Aphasia; I10 Essential (primary) hypertension; R29.702 NIHSS score 2; E78.5 Hyperlipidemia, unspecified
CPT/HCPCS: 36415; 70450; 70549; 70553; 80053; 80061; 81000; 84484; 85025; 85610; 85730; 92610; 93005; 96125; 96372; 97161; 99291; A9585; C8929; G0378; J1644